=== PATIENT | female | born 1970 | race Caucasian/White ===

== ENCOUNTER 2023-07-18 14:18 | Inpatient (IN) | payer BC, SELFPAY ==
--- NOTE | ~2023-07-18 | XR_ITS ---
EXAMINATION: XR ELBOW, LEFT CLINICAL INFORMATION: Fall, pain COMPARISON: None available. TECHNIQUE: Patient was only able to tolerate a single view of the elbow XR/XR elbow LT min 3V FINDINGS/IMPRESSION: Overlying cast material obscures fine osseus detail. Only single lateral view was obtained limiting assessment. There is displacement of the fat pads compatible with joint effusion. There is a displaced fracture of the olecranon with dorsal angulation of the fracture fragments. Radiocapitellar malalignment compatible with a radial head dislocation and probable associated radial head fracture though difficult to discern given this limited single view and recommend repeat multiview radiographs.
--- NOTE | ~2023-07-18 | XR_ITS ---
Examination: Left shoulder and left wrist. CLINICAL INDICATION: Elbow fracture. Pain left shoulder. COMPARISON: Right elbow. TECHNIQUE: Left wrist 3 views and left shoulder 2 views. FINDINGS: Left wrist: There is no visible fracture, dislocation or subluxation seen. The soft tissues are normal. There is a small bone fragment tip of ulnar side process likely old avulsion injury which is well corticated. Left shoulder: No visible acute fracture, dislocation or subluxation seen. The soft tissues are normal. XR/XR wrist LT 2V IMPRESSION: 1. Unremarkable left wrist exam. . 2. Unremarkable left shoulder exam. 3. Small bone fragment tip of ulnar side process likely old avulsion injury. No acute fracture seen.
--- NOTE | ~2023-07-18 | XR_ITS ---
Examination: Left shoulder and left wrist. CLINICAL INDICATION: Elbow fracture. Pain left shoulder. COMPARISON: Right elbow. TECHNIQUE: Left wrist 3 views and left shoulder 2 views. FINDINGS: Left wrist: There is no visible fracture, dislocation or subluxation seen. The soft tissues are normal. There is a small bone fragment tip of ulnar side process likely old avulsion injury which is well corticated. Left shoulder: No visible acute fracture, dislocation or subluxation seen. The soft tissues are normal. XR/XR shoulder LT min 2V IMPRESSION: 1. Unremarkable left wrist exam. . 2. Unremarkable left shoulder exam. 3. Small bone fragment tip of ulnar side process likely old avulsion injury. No acute fracture seen.
--- NOTE | ~2023-07-18 | FL_ITS ---
EXAMINATION: XR FL WITH IMAGES CLINICAL INFORMATION: Elbow fracture, left. COMPARISON: Previous x-ray from yesterday. TECHNIQUE: Fluoroscopy guidance with images in OR provided to Dr. Zuniga. FLUOROSCOPY TIME: 0.3 minutes. DOSE 1.20mGy DAP: 0.0210 mGym2 IMAGES: 6 images. FINDINGS: Images demonstrate a plate and screws transfixing the proximal ulna/olecranon fracture with improved alignment. Radial capitellar alignment is normal. FL/FL guidance in OR IMPRESSION: Fluoroscopy guidance for open reduction and internal fixation of left proximal ulnar fracture.
[2023-07-18 15:19] VITALS: BP 136/87; PULSE 86; RESP 18; TEMP 36.3; O2SAT 100; BMI 34.0
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
[2023-07-18] MEDS: Ketorolac Tromethamine 30 MG/ML VIAL IM (17:54)
[2023-07-18] MEDS: oxyCODONE HCl Immed Release 5 MG TABLET 10 MG PO (17:55)
--- NOTE | 2023-07-18 18:41 | PC.NURSE ---
posterior long arm splint removed from left arm with provider at bedside- area of ecchymosis noted over elbow, abrasions were cleansed and patted dry
--- NOTE | 2023-07-18 18:58 | PC.NURSE ---
pt to xr
[2023-07-18 19:35] LABS: MANUAL DIFF FLAG NO
[2023-07-18 19:38] VITALS: RESP 20
[2023-07-18] MEDS: HYDROmorphone HCl 1 MG/ML SYRINGE IVPUSH (19:38)
[2023-07-18 19:52] LABS: INTERNATIONAL NORM RATIO 0.9 (0.9-1.1); Prothrombin Time 10.9 SEC (11.1-13.3)
[2023-07-18 19:53] LABS: Alanine Aminotransferase 24 U/L (0-31); Albumin Level 3.7 g/dL (3.5-5.0); Alkaline Phosphatase 66 U/L (39-117); Anion Gap 10 (12-20); Aspartate Amino Transferase 21 U/L (5-31); Bilirubin Direct 0.1 mg/dL (0.0-0.5); Bilirubin Total 0.3 mg/dL (0.0-1.0); Blood Urea Nitrogen 11 mg/dL (9-16); Calcium 8.8 mg/dL (8.4-10.2); Carbon Dioxide 27 mmol/L (22-29); Chloride 109 mmol/L (96-108); Creatinine Clr Calc Pharmacy 84.7; Estimated Glomerular Filt Rate > 60; Glucose Random 110 mg/dL (60-115); Potassium 3.7 mmol/L (3.3-5.1); Sodium 142 mmol/L (135-145); Total Protein 6.1 g/dL (6.5-8.0)
[2023-07-18 19:54] LABS: Basophils Percent Auto 0.6 % (0-2); Eosinophils Absolute Auto 0.3 X10*3/uL (0.0-0.4); Eosinophils Percent Auto 5.1 % (0-4); Hematocrit 33.1 % (37.0-47.0); Hemoglobin 10.7 g/dl (12.0-16.0); Imm Gran Abs Auto 0.05 X10*3/uL (0.00-0.03); Lymphocytes Absolute Auto 1.6 X10*3/uL (1.2-4.9); Mean Corpuscular HGB Conc 32.3 g/dl (31.0-35.0); Mean Corpuscular Volume 99.1 fL (80.0-98.0); Mean Platelet Volume 9.5 fL (9.4-12.3); Monocytes Absolute Auto 0.4 X10*3/uL (0.1-1.2); Monocytes Percent Auto 7.1 % (2-11); Neutrophils Absolute Auto 2.7 x10*3/uL (2.0-8.3); Neutrophils Percent Auto 54.2 % (45-73); Platelet Count 145 X10*3/uL (160-400); Red Blood Count 3.34 X10*6/uL (4.20-5.50); Red Cell Distribution Width 13.3 % (11.0-16.0); White Blood Count 5.1 X10*3/uL (4.8-10.8)
[2023-07-18 19:56] LABS: Partial Thromboplastin Time 26.9 SEC (26.0-36.4)
[2023-07-18] MEDS: Lactated Ringers 1,000 ML 100 ML IVCONT (20:28)
--- NOTE | 2023-07-18 21:06 | PC.NURSE ---
pt returned from XR- 20g IV placed in right medial AC, labs drawn, type and screen sent, medicated per DEC. posterior long arm splint applied to left arm in 90 degree flexion, with LIBAN Vickers at bedside. Pt verbalizes 4/10 pain post splint application. CSM in tact plan is for pt to be admitted by ortho for surgery in AM, time TBD. 1L LR infusing at 100ml/hour. pt verbalizes understanding that she will be NPO at 00:00. all questions answered call connell within reach, care ongoing.
[2023-07-18 21:11] VITALS: BP 149/91; PULSE 88; RESP 19; TEMP 36.6; O2SAT 97
--- NOTE | 2023-07-18 21:37 | PC.NURSE ---
report called to Gabo Lerma RN on S3 pt to be transported to unit room 471
[2023-07-18 22:18] VITALS: BMI 35.7
[2023-07-18 22:32] VITALS: BP 140/83; PULSE 98; RESP 20; TEMP 36.7; O2SAT 99
[2023-07-18] MEDS: HYDROmorphone HCl 0.5 MG/0.5 ML SYRINGE IVPUSH (23:23)
[2023-07-18] MEDS: Escitalopram Oxalate 20 MG TABLET PO (23:23)
[2023-07-18] MEDS: Omeprazole 20 MG CAPSULE.DR PO (23:23)
[2023-07-18] MEDS: 0.9 % Sodium Chloride Flush 3 ML SYRINGE IVFLUSH (23:23)
[2023-07-19] VITALS (10 sets, daily range): BP systolic 112–141; BP diastolic 56–89; PULSE 76–112; RESP 11–22; TEMP 36.1–37.2; O2SAT 93–100
[2023-07-19] MEDS: oxyCODONE HCl Immed Release 5 MG TABLET PO ×4 (03:31→19:49)
[2023-07-19] MEDS: HYDROmorphone HCl 0.5 MG/0.5 ML SYRINGE IVPUSH ×3 (05:51→21:50)
[2023-07-19] MEDS: Lactated Ringers 1,000 ML 100 ML IVCONT ×2 (05:52→15:07)
--- NOTE | 2023-07-19 07:38 | PHA.MEDREC ---
Pharmacy Consult ? Medication Reconciliation Pharmacy has completed the medication reconciliation. Reviewed med rec done by nursing
--- NOTE | 2023-07-19 08:08 | P.HPOP_ITS ---
History of Present Illness History of Present Illness Date of Service: 07/19/23 Chief complaint: left elbow fracture dislocation Narrative: Flaquita Will is a 52 year old female who fell in [facility] and had her left elbow reduced and splinted. She presents today with pain. In the ED radiographs revealed a posterior monteggia. She was admitted for operative fixation. She denies other injuries. Review of Systems 2 Review of Systems: Yes all other systems are reviewed and are negative Constitutional: Constitutional: Reports no additional constitutional complaints Eyes: Eyes: Reports no additional eye complaints ENT: Reports system reviewed and no additional complaints, except as documented Cardiovascular: Cardiovascular: Reports no additional cardiovascular complaints Respiratory: Respiratory: Reports no additional respiratory complaints Gastrointestinal: Gastrointestinal: Reports no additional gastrointestinal complaints Musculoskeletal: Musculoskeletal: Reports as per HPI Integumentary/Breasts: Skin/Breast: Reports system reviewed and no additional complaints, except as docu Neurologic: Reports system reviewed and no additional complaints, except as documented and Reports as per HPI Psychiatric: Psychiatric: Reports no additional psychiatric complaints [facility] Past Medical History Medical History (Updated 07/19/23 @ 08:12 by Rajesh Zuniga MD) Monteggia fracture, closed Social History Social History Household Members: Significant Other Housing: House Do you presently have visiting nurse or other home services: No Patient Tobacco Use Status: Current everyday Tobacco user Smoked in Last 30 Days: Yes e-Cigarette/Vaping Use: Currently Using Frequency of e-Cigarette/Vaping Use: daily Patient Interested in Nicotine Replacement: No Use of substances other than those prescribed or required for medical reasons: No Currently Displaying Signs/Symptoms of Drug Intoxication Withdrawal: No Have you been hit, kicked, punched, or otherwise hurt by someone within the past year? If so, by whom?: No Do you feel safe in your current relationship?: Yes Is there a partner from a previous relationship who is making you feel unsafe now?: No Are you made to feel afraid or neglected: No Advance Directives: No Advance Directives Information Provided: No Do you have thoughts of harming others: None Do you have a plan to hurt others: No Plan Recently lost weight without trying: No Nutrition Risks: No Nutritional Risk Patient : No Meds Allergies Allergy/AdvReac Type Severity Reaction Status Date / Time No Known Allergies Allergy Verified 07/18/23 15:19 Active Medications: Current Medications Al Hydroxide/Mg Hydroxide (Magnesium Hydrox/Alum Hydrox 30 Ml Oral.Susp) 30 ml PO Q4H PRN PRN Reason: Heartburn/Nausea Escitalopram Oxalate (Escitalopram Oxalate 20 Mg Tablet) 20 mg PO DAILY [facility] Last Admin: 07/18/23 23:23 Dose: 20 mg Hydromorphone HCl (Hydromorphone Hcl 0.5 Mg/0.5 Ml Syringe) 0.5 mg IVPUSH Q6H PRN; Protocol PRN Reason: Pain, Severe (Pain Scale 7-10) Last Admin: 07/19/23 05:51 Dose: 0.5 mg Lactated Ringer's (Lr) 1,000 mls @ 100 mls/hr IVCONT .Q10H [facility] Last Admin: 07/19/23 05:52 Dose: 100 mls/hr Magnesium Hydroxide (Milk Of Magnesia 30 Ml Oral.Susp) 30 ml PO DAILY PRN PRN Reason: Constipation Melatonin (Melatonin 3 Mg Tablet) 6 mg PO BEDTIME PRN PRN Reason: Insomnia Omeprazole (Omeprazole 20 Mg Capsule.Dr) 20 mg PO DAILY@629 [facility] Last Admin: 07/18/23 23:23 Dose: 20 mg Oxycodone HCl (Oxycodone Hcl Immed Release 5 Mg Tablet) 5 mg PO Q4H PRN PRN Reason: Pain, Moderate(Pain Scale 4-6) Last Admin: 07/19/23 03:31 Dose: 5 mg Sodium Chloride (0.9 % Sodium Chloride Flush 3 Ml Syringe) 3 ml IVFLUSH QSHIFT [facility] Last Admin: 07/18/23 23:23 Dose: 3 ml Zolpidem Tartrate (Zolpidem Tartrate 5 Mg Tablet) 5 mg PO BEDTIME PRN PRN Reason: Insomnia Home Medications Medication Instructions Recorded Confirmed Last Taken Type dextroamphetamine-amphetamine 10 1 tab PO DAILY 07/18/23 07/19/23 07/17/23 History mg tablet escitalopram oxalate 20 mg tablet 20 mg PO DAILY 07/18/23 07/18/23 07/17/23 History ibuprofen 800 mg tablet 800 mg PO TID PRN low back pain 07/18/23 07/18/23 07/17/23 History omeprazole 20 mg capsule,delayed 20 mg PO DAILY@0630 07/18/23 07/19/23 07/17/23 History release Physical Exam 2 Vital Signs: Vital Signs: Last Vital Signs Temp 97.0 F 07/19/23 08:00 Pulse 76 07/19/23 08:00 Resp 20 07/19/23 08:00 BP 118/71 07/19/23 08:00 Pulse Ox 96 07/19/23 08:00 O2 Del Method Room Air 07/19/23 08:00 BMI result Body Mass Index 35.7 Const: General: cooperative, healthy appearing, no acute distress, well developed and alert HEENT: Head: Yes normal to inspection, Yes normocephalic and Yes atraumatic Mouth: moist mucous membranes Eyes: General: appearance normal, both eyes and all related structures EOM: EOMs intact bilaterally Chest: Other: no audible wheezing. Resp: Other: No audible wheezing Effort & Inspection: normal respiratory effort Cardio: Other: Radial pulse palpable with no rythmic abnormalities Back/Spine/Pelvis: Cervical Spine: normal cervical lordosis Skin: General skin exam: no rashes or lesions noted Neuro: General: no focal motor deficits Extrem: Other: SILT left hand Moving fingers comfortably Splint intact Psych: Appearance: grossly normal and well kempt Mental Status: mental status grossly normal Speech and movement: Normal speech and movement present Affect: normal affect Attitude: cooperative Results Labs 07/18/23 19:31 07/18/23 19:31 Labs: Abnormal lab results 07/18/23 Range/Units 19:31 RBC 3.34 L (4.20-5.50) X10*6/uL Hgb 10.7 L (12.0-16.0) g/dl Hct 33.1 L (37.0-47.0) % MCV 99.1 H (80.0-98.0) fL Plt Count 145 L (160-400) X10*3/uL Immature Gran % (Auto) 1.0 H (0.0-0.4) % Eos % (Auto) 5.1 H (0-4) % Abs Immat Gran (auto) 0.05 H (0.00-0.03) X10*3/uL PT 10.9 L (11.1-13.3) SEC Chloride 109 H (96-108) mmol/L Anion Gap 10 L (12-20) Total Protein 6.1 L (6.5-8.0) g/dL H & H 07/18/23 Range/Units 19:31 Hgb 10.7 L (12.0-16.0) g/dl Hct 33.1 L (37.0-47.0) % Coagulation 07/18/23 Range/Units 19:31 INR 0.9 (0.9-1.1) All other labs normal. Diagnostic results Elbow x-ray: image reviewed (posterior monteggia) Assessment and Plan (1) Monteggia fracture, closed: Status: Acute Plan Left dejan in active and healthy 52 yo F. I recommend ORIF. I discussed details of surgery with her and I discussed the risks benefits and alternatives including but not limited to the risk of pain, infection, stiffness, nerve injury, need for further surgery as well as potential medical complications such as blood clots, pulmonary embolism and cardiac complications. She expressed understanding. Time Spent With Patient Time: Total time managing care of this patient today 30____ minutes. Quality Stroke Does the patient have a stroke diagnosis?: No VTE Prior VTE?: No VTE Risk Level:: Surgical - low VTE Device Contraindication: N/A - Device Ordered VTE Drug Contraindication: Treatment Not Indicated Procedures Date of Service Date of Service: 07/19/23
[2023-07-19] MEDS: Escitalopram Oxalate 20 MG TABLET PO (10:23)
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
--- NOTE | 2023-07-19 17:15 | HO.ANESPROP2 ---
HPI - Anesthesia Eval Consult details Narrative: Left olecranon fracture PMFSH Active Problems Active Problems: All Active Problems (Updated 07/19/23 @ 08:12 by Rajesh Zuniga MD) Monteggia fracture, closed (Acute) Fracture, radius, head (Acute) Dislocation of left radial head (Acute) Fracture, olecranon (Acute) Past Medical History Medical History (Updated 07/19/23 @ 17:16 by Garret Salguero MD) GERD (gastroesophageal reflux disease) Anxiety ADHD (attention deficit hyperactivity disorder) Monteggia fracture, closed Family History Family history of problems with anesthesia: No Surgical History History of Problems with Anesthesia: No Social History Social History Household Members: Significant Other Housing: House Do you presently have visiting nurse or other home services: No Patient Tobacco Use Status: Current everyday Tobacco user Smoked in Last 30 Days: Yes e-Cigarette/Vaping Use: Currently Using Frequency of e-Cigarette/Vaping Use: daily Patient Interested in Nicotine Replacement: No Use of substances other than those prescribed or required for medical reasons: No Currently Displaying Signs/Symptoms of Drug Intoxication Withdrawal: No Have you been hit, kicked, punched, or otherwise hurt by someone within the past year? If so, by whom?: No Do you feel safe in your current relationship?: Yes Is there a partner from a previous relationship who is making you feel unsafe now?: No Are you made to feel afraid or neglected: No Advance Directives: No Advance Directives Information Provided: No Do you have thoughts of harming others: None Do you have a plan to hurt others: No Plan Recently lost weight without trying: No Nutrition Risks: No Nutritional Risk Patient : No service: No Meds Allergies Allergy/AdvReac Type Severity Reaction Status Date / Time No Known Allergies Allergy Verified 07/18/23 15:19 Active Medications: Current Medications Al Hydroxide/Mg Hydroxide (Magnesium Hydrox/Alum Hydrox 30 Ml Oral.Susp) 30 ml PO Q4H PRN PRN Reason: Heartburn/Nausea Escitalopram Oxalate (Escitalopram Oxalate 20 Mg Tablet) 20 mg PO DAILY IVANA Last Admin: 07/19/23 10:23 Dose: 20 mg Hydromorphone HCl (Hydromorphone Hcl 0.5 Mg/0.5 Ml Syringe) 0.5 mg IVPUSH Q6H PRN; Protocol PRN Reason: Pain, Severe (Pain Scale 7-10) Last Admin: 07/19/23 12:02 Dose: 0.5 mg Lactated Ringer's (Lr) 1,000 mls @ 100 mls/hr IVCONT .Q10H [facility] Last Admin: 07/19/23 15:07 Dose: 100 mls/hr Magnesium Hydroxide (Milk Of Magnesia 30 Ml Oral.Susp) 30 ml PO DAILY PRN PRN Reason: Constipation Melatonin (Melatonin 3 Mg Tablet) 6 mg PO BEDTIME PRN PRN Reason: Insomnia Omeprazole (Omeprazole 20 Mg Capsule.Dr) 20 mg PO DAILY@0630 [facility] Last Admin: 07/19/23 10:26 Dose: Not Given Oxycodone HCl (Oxycodone Hcl Immed Release 5 Mg Tablet) 5 mg PO Q4H PRN PRN Reason: Pain, Moderate(Pain Scale 4-6) Last Admin: 07/19/23 14:59 Dose: 5 mg Sodium Chloride (0.9 % Sodium Chloride Flush 3 Ml Syringe) 3 ml IVFLUSH QSHIFT [facility] Last Admin: 07/19/23 15:08 Dose: Not Given Zolpidem Tartrate (Zolpidem Tartrate 5 Mg Tablet) 5 mg PO BEDTIME PRN PRN Reason: Insomnia Home Medications Medication Instructions Recorded Confirmed Last Taken Type dextroamphetamine-amphetamine 10 1 tab PO DAILY 07/18/23 07/19/23 07/17/23 History mg tablet escitalopram oxalate 20 mg tablet 20 mg PO DAILY 07/18/23 07/18/23 07/17/23 History ibuprofen 800 mg tablet 800 mg PO TID PRN low back pain 07/18/23 07/18/23 07/17/23 History omeprazole 20 mg capsule,delayed 20 mg PO DAILY@0630 07/18/23 07/19/23 07/17/23 History release Exam Exam Date and Time: July 19, [id number] Height,Weight and Vital Signs: Height 5 ft 1 in Weight 85.7 kg Last Vital Signs Temp 97.2 F 07/19/23 15:44 Pulse 77 07/19/23 15:44 Resp 20 07/19/23 15:44 BP 128/77 07/19/23 15:44 Pulse Ox 96 07/19/23 15:44 O2 Del Method Room Air 07/19/23 15:44 Pertinent Lab Results Pertinent Lab Results: Laboratory Tests 07/18/23 07/18/23 19:30 19:31 WBC 5.1 RBC 3.34 L Hgb 10.7 L Hct 33.1 L MCV 99.1 H MCH 32.0 MCHC 32.3 RDW 13.3 Plt Count 145 L MPV 9.5 Immature Gran % (Auto) 1.0 H Neut % (Auto) 54.2 Lymph % (Auto) 32.0 [place] % (Auto) 7.1 Eos % (Auto) 5.1 H Baso % (Auto) 0.6 Lymph # (Auto) 1.6 [place] # (Auto) 0.4 Eos # (Auto) 0.3 Baso # (Auto) 0.0 Abs Immat Gran (auto) 0.05 H Absolute Neuts (auto) 2.7 Absolute Nucleated RBC 0.000 Nucleated RBC % (auto) 0.0 PT 10.9 L INR 0.9 APTT 26.9 Sodium 142 Potassium 3.7 Chloride 109 H Carbon Dioxide 27 Anion Gap 10 L BUN 11 Creatinine 0.77 Estim Creat Clear Calc 84.7 Estimated GFR > 60 Random Glucose 110 Calcium 8.8 Total Bilirubin 0.3 Direct Bilirubin 0.1 AST 21 ALT 24 Alkaline Phosphatase 66 Total Protein 6.1 L Albumin 3.7 Blood Type A Negative Antibody Screen NEGATIVE Airway Mallampati Class: II TM Dist: >3cm Neck ROM: Full Loose/Missing/Broken Teeth: No Heart: RRR Lungs: CTA Assessment and Plan Assessment Anesthesia Assessment: Anesthesia Plan Discussed and Chart Reviewed Final Anesthetic Review Family History of Problems with Anesthesia: No History of Problems with Anesthesia: No NPO: Yes ASA Class: II Final Preanesthetic Review: No Changes in Pt Med Stat, Meds/Allgs Chart Reviewed, Consent Obtained/Reviewed and Anes Risks/Benef Reviewed Patient Risk: Intermediate Procedure Risk: Low Anesthetic Plan Anesthetic Plan: GA Disposition: Standard PACU
--- NOTE | 2023-07-19 19:11 | PM.OP ---
Brief Operative Note Date of Service: 07/19/23 Pre-op diagnosis: Left Monteggia fracture Post-op diagnosis: same Procedure: Open reduction internal fixation comminuted ulna fracture with radial head reduction Implants: Manjit olecronon plate Surgeon: Rajesh Zuniga MD Anesthesia: GETA Was an Drawing Tender used for this Procedure?: No Estimated blood loss (mL): 25 Tourniquet time (min): 74 IV fluids (mL): 1,100 Pathology: none sent Condition: stable Disposition: PACU
[2023-07-19] MEDS: Melatonin 3 MG TABLET 6 MG PO (20:15)
[2023-07-19] MEDS: 0.9 % Sodium Chloride Flush 3 ML SYRINGE IVFLUSH (20:16)
[2023-07-20] MEDS: oxyCODONE HCl Immed Release 5 MG TABLET PO ×5 (00:32→21:06)
[2023-07-20] MEDS: Zolpidem Tartrate 5 MG TABLET PO (02:25)
[2023-07-20 03:59] VITALS: BP 124/68; PULSE 80; RESP 20; TEMP 36.1; O2SAT 96
[2023-07-20] MEDS: Lactated Ringers 1,000 ML 100 ML IVCONT ×2 (04:40→12:28)
[2023-07-20] MEDS: Omeprazole 20 MG CAPSULE.DR PO (05:16)
[2023-07-20] MEDS: HYDROmorphone HCl 0.5 MG/0.5 ML SYRINGE IVPUSH ×3 (05:16→18:24)
[2023-07-20 07:31] VITALS: BP 111/59; PULSE 88; RESP 20; TEMP 36.2; O2SAT 98
--- NOTE | 2023-07-20 07:38 | PM.PNORT ---
Subjective Subjective Date of Service: 07/20/23 Principal diagnosis: left monteggia Interval history: No overnight events pain complaints Physical Exam Vital Signs: Vital Signs: Last Vital Signs Temp 97.0 F 07/20/23 03:59 Pulse 80 07/20/23 03:59 Resp 20 07/20/23 03:59 BP 124/68 07/20/23 03:59 Pulse Ox 96 07/20/23 03:59 O2 Del Method Room Air 07/20/23 03:59 O2 Flow Rate 2 07/19/23 19:50 BMI result Body Mass Index 35.7 Extrem: Other: Moving fingers LUE Brisk cap refill Splint intact and dry Procedures Date of Service Date of Service: 07/20/23 Progress Note: A&P Assessment and plan (1) Monteggia fracture, closed: Status: Acute Assessment and Plan: Walking and oob > QID today po pain control dispo planning Time Spent With Patient Time: Total time managing care of this patient today __10__ minutes. Quality Stroke Does the patient have a stroke diagnosis?: No VTE Prior VTE?: No VTE Risk Level:: Surgical - low VTE Device Contraindication: N/A - Device Ordered VTE Drug Contraindication: Treatment Not Indicated
[2023-07-20] MEDS: Escitalopram Oxalate 20 MG TABLET PO (08:52)
--- NOTE | 2023-07-20 10:53 | HO.POSTANES ---
Post Anesthesia Evaluation Post Anesthesia Evaluation Date of Service: 07/20/23 Vital Signs: Vital Signs Temp Pulse Resp BP Pulse Ox O2 Del Method 07/20/23 07:31 97.1 F 88 20 111/59 L 98 Room Air 07/20/23 03:59 97.0 F 80 20 124/68 96 Room Air 07/19/23 23:40 96.9 F 81 20 128/85 93 Room Air Anesthesia: General Mental Status: Awake Pain Control: Satisfactory Nausea/Vomiting: None Hydration: Adequate Anesthesia-Related Issues: No Anes. Related Issues
[2023-07-20 15:00] VITALS: BP 135/59; PULSE 101; RESP 20; TEMP 36.7; O2SAT 98
[2023-07-20] MEDS: Ketorolac Tromethamine 15 MG/ML VIAL IVPUSH ×2 (15:01→20:04)
[2023-07-20 19:08] VITALS: BP 119/81; PULSE 86; RESP 20; TEMP 36.6; O2SAT 97
[2023-07-20] MEDS: Docusate Sodium 100 MG CAPSULE PO (21:10)
[2023-07-20] MEDS: Melatonin 3 MG TABLET 6 MG PO (22:15)
[2023-07-21] MEDS: HYDROmorphone HCl 0.5 MG/0.5 ML SYRINGE IVPUSH ×3 (00:09→12:19)
[2023-07-21] MEDS: 0.9 % Sodium Chloride Flush 3 ML SYRINGE IVFLUSH ×3 (00:09→20:45)
[2023-07-21 01:24] VITALS: RESP 18
[2023-07-21] MEDS: oxyCODONE HCl Immed Release 5 MG TABLET PO ×2 (03:22→09:06)
[2023-07-21 04:00] VITALS: RESP 18
[2023-07-21] MEDS: Ketorolac Tromethamine 15 MG/ML VIAL IVPUSH ×2 (04:01→12:17)
[2023-07-21] MEDS: Omeprazole 20 MG CAPSULE.DR PO (06:43)
[2023-07-21 07:43] VITALS: BP 141/64; PULSE 78; RESP 16; TEMP 36.6; O2SAT 94
[2023-07-21] MEDS: Docusate Sodium 100 MG CAPSULE PO ×2 (09:06→20:44)
[2023-07-21] MEDS: Escitalopram Oxalate 20 MG TABLET PO (09:08)
--- NOTE | 2023-07-21 09:42 | PM.PNORT ---
Subjective Subjective Date of Service: 07/21/23 Principal diagnosis: left monteggia Interval history: POD 2 s/p ORIF left elbow No overnight events pain complaints Physical Exam Vital Signs: Vital Signs: Last Vital Signs Temp 97.8 F 07/21/23 07:43 Pulse 78 07/21/23 07:43 Resp 16 07/21/23 07:43 BP 141/64 H 07/21/23 07:43 Pulse Ox 94 07/21/23 07:43 O2 Del Method Room Air 07/21/23 07:43 O2 Flow Rate 2 07/19/23 19:50 BMI result Body Mass Index 35.7 Extrem: Other: Moving fingers LUE Brisk cap refill Splint intact and dry Procedures Date of Service Date of Service: 07/21/23 Progress Note: A&P Assessment and plan (1) Monteggia fracture, closed: Status: Acute Assessment and Plan: Walking and oob > QID today po pain control dispo planning-pain control Time Spent With Patient Time: Total time managing care of this patient today ____ minutes. Quality Stroke Does the patient have a stroke diagnosis?: No VTE Prior VTE?: No VTE Risk Level:: Surgical - low VTE Device Contraindication: N/A - Device Ordered VTE Drug Contraindication: Treatment Not Indicated
[2023-07-21 12:19] VITALS: RESP 16
[2023-07-21] MEDS: oxyCODONE HCl Immed Release 5 MG TABLET 10 MG PO ×2 (17:28→21:35)
[2023-07-21] MEDS: oxyCODONE HCl ER 10 MG TAB.ER.12H PO (20:43)
[2023-07-21] MEDS: Melatonin 3 MG TABLET 6 MG PO (21:35)
[2023-07-22] MEDS: oxyCODONE HCl Immed Release 5 MG TABLET 10 MG PO ×2 (03:37→08:46)
[2023-07-22] MEDS: Omeprazole 20 MG CAPSULE.DR PO (05:54)
[2023-07-22] MEDS: Docusate Sodium 100 MG CAPSULE PO (08:42)
[2023-07-22] MEDS: Escitalopram Oxalate 20 MG TABLET PO (08:42)
--- NOTE | 2023-07-22 08:49 | MHC.CM.PN ---
Addendum entered by Анна Ball RN 07/22/23 11:48: NICOLASA DISCUSSED W/CM DATA CONVERSION OPERATOR, PT WILL NEED TO GO THROUGH MEDICAL RECORDS, CM HAS CONTACTED PT AND GIVEN HER [facility] MAIN NUMBER AND EXTENSION TO MEDICAL RECORDS. Addendum entered by Анна Ball RN 07/22/23 11:38: CM CONTACTED PT IN PER PT REQUEST, PT REQUESTING DOCUMENTATION BE EMAILED TO [email or web address], CM TO EMAIL D/C SUMMARY ONCE AVAILABLE. Original Note: PT MEDICALLY CLEARED FOR D/C HOME SELF CARE, PER OT EVAL PT RECOMMENDED OUTPT SERVICES WHICH SHE WILL ARRANGE THROUGH PCP WHEN SHE RETURNS TO [place], WILL TRANSPORT
[2023-07-22 10:15] VITALS: RESP 15
[2023-07-22] MEDS: oxyCODONE HCl ER 10 MG TAB.ER.12H PO (10:17)
[2023-07-22] MEDS: 0.9 % Sodium Chloride Flush 3 ML SYRINGE IVFLUSH (10:17)
--- NOTE | 2023-07-25 12:14 | P.OP_ITS ---
Operative Note Operative Note Date of Service: 07/19/23 Narrative: Date of Service: 07/19/23 Pre-op diagnosis: Left Monteggia fracture Post-op diagnosis: same Procedure: Open reduction internal fixation comminuted ulna fracture with radial head reduction Implants: Manjit olecronon plate Surgeon: Rajesh Zuniga MD Anesthesia: GETA Was an Networking Administrator used for this Procedure?: No Estimated blood loss (mL): 25 Tourniquet time (min): 74 IV fluids (mL): 1,100 Pathology: none sent Condition: stable Disposition: PACU Patient was brought to the operating room and placed supine on the surgical table. She was prepped and draped in standard sterile fashion and a time out was called to i she dentify proper site, proper procedure and IV antibiotics per weight were administered. She has IV and by visualizing the fracture using biplanar fluoroscopy. This was a posterior Monteggia fracture dislocation and I was able to reduce the radial head with a dorsal pressure applied to the ulna. A posterior incision was made and full-thickness flaps were developed. I dissected down to the triceps attachment proximally and distally to the ulnar shaft. The intermuscular plane between the ECU and the FCU was exploited and the fracture was visualized. This was a comminuted fracture with the radial head still within radial notch of the ulna. I was able to visualize the radial articulation through the comminuted ulna fracture. This was debrided and all loose material was removed. I selected a 6 hole olecranon plate and using standard AO technique the plate was applied to the dorsum of the olecranon and ulnar shaft. Eight cortices were placed distal to the fracture and 4 locking screws were placed proximally this allowed for stabilization of the radial head and I was able to range the elbow fully pronate and supinate the hand without obstruction and under direct visualization. I was satisfied with stability of the construct and reduction of the radial head. There was a radial piece of cortical bone that was reapproximated using FiberWire as this was too diminutive for any type of lag screw or plate fixation but I was hesitant to remove it completely. Again once I was satisfied with a biplanar fluoroscopy and the stability of the construct as well as the hardware location fracture reduction I irrigated copiously. I closed with absorbable suture and kedar. Patient was placed into a sterile dressing and a well-padded posterior splint. She was extu bated brought to recovery room stable condition. There were no known complications.
--- NOTE | 2023-08-22 15:27 | PM.DS ---
DS: Providers Provider Date of Service: 07/22/23 Date of admission: 07/18/23 20:02 Primary care physician: Unknown Physician DS: Diagnosis Discharge Diagnosis (1) Monteggia fracture, closed: Status: Acute DS: Summary Hospital Course Hospital Course: The patient underwent a successful ORIF left elbow 07/19/23, was transferred to PACU and then to the floor to recover. During their stay, their vitals were stable. Labs were unremarkable, H/H 10.7/33.1. She received Occupational therapy services while in the hospital. Occupational therapy should include ADL's Prior to discharge, dressing clean dry and intact. Any concerns with the dressing, please contact orthopedic office. No showering. The plan is to be discharged home and f/u with orthopedics out patient. Time Spent with Patient Time attestation: Total time managing care of this patient today ____ minutes. Discharge coordination time: Less than 30 minutes Quality: Safe Use of Opioids Does Pt have an Active Cancer Diagnosis on the Problem List?: No Quality: Stroke Does the patient have a stroke diagnosis?: No Physical Exam Vital Signs: Vital Signs: Last Vital Signs Temp 97.8 F 07/21/23 07:43 Pulse 78 07/21/23 07:43 Resp 15 07/22/23 10:15 BP 141/64 H 07/21/23 07:43 Pulse Ox 94 07/21/23 07:43 O2 Del Method Room Air 07/21/23 07:43 O2 Flow Rate 2 07/19/23 19:50 BMI result Body Mass Index 35.7 DS: Data Data Completed and Pending Completed studies during hospitalization [Text1]: Procedures Reposition Left Radius with Internal Fixation Device, Open Approach (07/18/23) Reposition Left Ulna with Internal Fixation Device, Open Approach (07/18/23) Discharge Plan Discharge Anticipated Discharge Date/Time: 07/21/23 13:13 Patient Disposition: Home, Self-Care Discharge Diagnosis: s/p left elbow orif Referrals: Rajesh Zuniga MD [Physician] - 1 Week (07/29/23 12:45 [facility] Orthopedic Surgeons Rajesh Zuniga MD) Clari Esquivel PA-C [Physician Colored Leather Setter] - 08/01/23 10:45 am (08/01/23 At 10/15 ) Physician,Divya Christine [Primary Care Provider] - 1 Week Discharge Medications: New celecoxib 200 mg Capsule 200 mg PO BID 30 Days Qty: 60 0RF acetaminophen 325 mg tablet 650 mg PO Q6H PRN (Reason: Pain, Mild (Pain Scale 1-3)) 30 Days Qty: 240 0RF oxycodone 10 mg tablet 10 mg PO Q6H PRN (Reason: pain) 14 Days Qty: 56 0RF Rx Instructions: Partial Fill upon patient request. escitalopram oxalate [Lexapro] 20 mg tablet 20 mg PO DAILY 21 Days Qty: 21 0RF Continued ibuprofen 800 mg tablet 800 mg PO TID PRN (Reason: low back pain) dextroamphetamine-amphetamine 10 mg tablet 1 tab PO DAILY omeprazole 20 mg capsule,delayed release(DR/EC) 20 mg PO DAILY@0630 escitalopram oxalate 20 mg tablet 20 mg PO DAILY Discharge Orders: Discharge Order (Routine); Ordered 07/22/23 Ordered By: Patricia Freedman Diet: Advance to usual diet Activity on Discharge: Use Splints or Immobilizers Stand Alone Forms: Patient Portal Discharge page Activity Restrictions/Additional Instructions: Keep splint clean, dry, and intact Elevate throughout the day No heavy lifting Perform fist/finger exercises throughout the day Do not bathe or shower--keep splint dry Call [facility] orthopedics with questions or concerns 07/29/23 12:45 [facility] Orthopedic Surgeons Rajesh Zuniga MD Care Plan Goals: restore fxn to left elbow Health Concerns: none Plan of Treatment: Keep splint clean, dry, and intact Elevate throughout the day No heavy lifting Perform fist/finger exercises throughout the day Do not bathe or shower--keep splint dry Call [facility] orthopedics with any questions or concerns. 07/29/23 12:45 [facility] Orthopedic Surgeons Rajesh Zuniga MD Assessment: stable for d/c Discharge Date/Time: 07/22/23 12:47
== END 2023-07-22 12:47 | disposition home or self-care (01) | DRG 315 ==
LOC: HO.ED 19:35 → HO.EDOVER 20:03 → HO.IMC 20:24
PROVIDERS: Physician Assistant Medical; Admitting Provider Orthopaedic Surgery; Emergency Provider Emergency Medicine; Visit Provider Orthopaedic Surgery
PROC: 0PSL04Z Reposition Left Ulna with Internal Fixation Device, Open Approach (ICD-10-PCS; principal; 2023-07-19 18:40)
DX: S52.272A Monteggia's fracture of left ulna, initial encounter for closed fracture (principal); F41.9 Anxiety disorder, unspecified; W05.2XXA Fall from non-moving motorized mobility scooter, initial encounter; F90.9 Attention-deficit hyperactivity disorder, unspecified type; K21.9 Gastro-esophageal reflux disease without esophagitis; F17.210 Nicotine dependence, cigarettes, uncomplicated; Z71.6 Tobacco abuse counseling; Z79.899 Other long term (current) drug therapy
CPT/HCPCS: 36415; 73030; 73080; 73100; 80048; 80076; 85025; 85610; 85730; 86850; 86900; 86901; 97110; 97165; 97535; 99285; A4649; C1713; J0131; J0690; J1100; J1170; J1885; J2250; J2405; J3010

== ENCOUNTER → 2023-07-18 20:02 | Outpatient (BNV) | payer BC, SELFPAY | PROVIDERS: Admitting Provider Orthopaedic Surgery; Emergency Provider Emergency Medicine; Visit Provider Orthopaedic Surgery | DX: S52.272A Monteggia's fracture of left ulna, initial encounter for closed fracture (principal) | CPT/HCPCS: 24635; 99024; 99223 ==

== ENCOUNTER 2023-07-29 10:00 | Outpatient (REF) | payer BC, SELFPAY ==
--- NOTE | ~2023-07-29 | XR_ITS ---
EXAMINATION: XR ELBOW, LEFT CLINICAL INFORMATION: Pain. COMPARISON: Intraoperative fluoroscopy and left elbow radiographs dated 07/18/2023. TECHNIQUE: AP, lateral, and oblique views of the left elbow. FINDINGS: An orthopedic fixator plate and fixator screws are again applied to the proximal ulnar shaft and olecranon process, without hardware failure or loosening. The underlying fracture at this level is well aligned. A displaced fracture fragment is now appreciated arising from the anterior margin of the humeral head. No dislocation is seen. There is a right elbow effusion. There is generalized soft tissue swelling, most pronounced posteriorly. There are posterior left forearm and elbow surgical skin kedar. XR/XR elbow LT 2V IMPRESSION: 1. A proximal left ulnar fracture remains in good alignment status-post ORIF, without hardware failure or loosening noted. There is no significant new callus formation. 2. A displaced fracture fragment is now appreciated arising from the anterior margin of the left humeral head. 3. A left elbow joint effusion and soft tissue swelling are noted.
== END 2023-07-29 10:01 | disposition home or self-care (01) ==
LOC: HO.HOSX 10:00
PROVIDERS: Visit Provider Orthopaedic Surgery
DX: S52.022D Displaced fracture of olecranon process without intraarticular extension of left ulna, subsequent encounter for closed fracture with routine healing (principal); S52.272D Monteggia's fracture of left ulna, subsequent encounter for closed fracture with routine healing
CPT/HCPCS: 73070

== ENCOUNTER 2023-07-29 12:31 | Outpatient (AMB) | payer BC, SELFPAY ==
--- NOTE | 2023-07-29 12:45 | MHC.OFFVIS ---
Intake Intake Visit Reasons: s/p left olecranon ORIF w NE 07/19/23 Intake Note: Flaquita is a 52 year old female who presents today for a post operative appointment s/p Left Olecranon ORIF 07/19/2023. Patient reports that she is doing well, she is having continued pain. Her swelling has decreased. She has some numbness in the hand. She is anticipating that she will return home, and have to transfer her care elsewhere as she is from [place]. She also repors left shoulder pain. Allergies No Known Allergies Allergy (Verified 07/29/23 12:45) HPI s/p left olecranon ORIF w NE 07/19/23 HPI Details Flaquita is a 52 year old woman who presents ~10 days S/P left Olecranon ORIF. She complains of pain in her shoulder, and she has been using her sling. She says her swelling has improved now. She plans on flying home to [place] soon, and wants to know her restrictions before she transfers care. [facility] Medical History GERD (gastroesophageal reflux disease) Anxiety ADHD (attention deficit hyperactivity disorder) Monteggia fracture, closed Social History Household Members: Significant Other Housing: House Do you presently have visiting nurse or other home services: No Patient Tobacco Use Status: Current everyday Tobacco user e-Cigarette/Vaping Use: Currently Using service: No Review of Systems Const All systems reviewed & are unremarkable except as noted in HPI and below Physical Exam Const General: no acute distress, alert and awake Orientation/consciousness: patient oriented x3 HEENT Head: Yes normocephalic and Yes atraumatic Eyes EOM: EOMs intact bilaterally Resp Effort & Inspection: normal respiratory effort and able to speak in complete sentences Cardio Jugular venous distension: no JVD Skin General skin exam: turgor normal Rashes: no rashes Neuro General: patient oriented x3 Extrem Other: Left Elbow: Psych Appearance: grossly normal Affect: normal affect Attitude: cooperative Results Reviewed Results Reviewed: I personally reviewed relevant radiographs. There is a fracture of the radial head that was not appreciated previously. Mild posterior subluxation of radial head. No hardware complications Assessment & Plan Assessment & Plan (1) Fracture, olecranon: Code(s): S52.023A - Displaced fracture of olecranon process without intraarticular extension of unspecified ulna, initial encounter for closed fracture Qualifiers: Encounter type: initial encounter Fracture type: closed Laterality: left Qualified Code(s): S52.022A - Displaced fracture of olecranon process without intraarticular extension of left ulna, initial encounter for closed fracture Plan: This is a 52 year old woman S/P left olecranon ORIF, DOS: 07/19/23. There is a small radial head fracture that was not seen intraoperatively. There is mild posterior subluzation of the radial head. She has no mechanical block to rotation. She continues to have pain in her arm, which has somewhat improved, and has been wearing her sling. She lives in [place] and is returning home soon, understanding she will need to transfer her care. I recommend she avoid any lifting activities and continue wearing her sling for the next few weeks. She was fitted for an elbow ROM brace to wear with daily activity, she is to unlock the brace when performing her exercises and keep it locked otherwise. She will need to see an ortho surgeon RUPINDER. (2) Monteggia fracture, closed: Code(s): S52.279A - Dhruv's fracture of unspecified ulna, initial encounter for closed fracture Plan Scribed for Rajesh Zuniga MD by Austin Charles, medical collections specialist, on 07/29/23 at 1:00 PM, EST. Orders: Orders XR elbow LT 2V 07/29/23 M25.529 - Pain in unspecified elbow Coding Level of Care Code Global (33900) Diagnoses Fracture, olecranon S52.022A Encounter type: initial encounter Fracture type: closed Laterality: left Monteggia fracture, closed S52.279A
== END 2023-07-29 14:12 | disposition home or self-care (01) ==
PROVIDERS: Visit Provider Orthopaedic Surgery
DX: S52.022A Displaced fracture of olecranon process without intraarticular extension of left ulna, initial encounter for closed fracture (principal); S52.27 Monteggia's fracture of ulna
CPT/HCPCS: 99024